=== PATIENT | male | born 1990 | race American Indian/Alaskan Native ===

== ENCOUNTER 2019-01-23 05:20 | Emergency (ER) | payer OTHER ==
[2019-01-23 05:52] VITALS: O2SAT 97
--- NOTE | 2019-01-23 05:59 | ED PDOC ---
Arrival/HPI - General Chief Complaint: Eye Problem Time Seen by Provider: 01/23/19 05:38 Historian: Patient - History of Present Illness Narrative History of Present Illness (Text): 01/23/19 05:59 Stanislav Beasley is a 28 year old male who presents to the ED complaining of vague right eye pain since yesterday. Patient also requesting to speak with general office worker. Patient denies any recent trauma/injury, suicidal ideation, homicidal ideation, fever, chills, chest pain, shortness of breath, nausea, vomiting, diarrhea, urinary symptoms, back pain, neck pain, dizziness, or any other complaints. Time/Duration: Other (tonight) Symptom Onset: Gradual Symptom Course: Unchanged Activities at Onset: Light Past Medical History - Provider Review Nursing Documentation Reviewed: Yes - Infectious Disease Hx of Infectious Diseases: None - Cardiac Hx Cardiac Disorders: Yes Hx Hypertension: Yes - Pulmonary Hx Respiratory Disorders: No - Neurological Hx Neurological Disorder: No - HEENT Hx HEENT Disorder: No - Renal Hx Renal Disorder: No - Endocrine/Metabolic Hx Endocrine Disorders: No - Hematological/Oncological Hx Blood Disorders: No - Integumentary Hx Dermatological Disorder: No - Musculoskeletal/Rheumatological Hx Musculoskeletal Disorders: No - Gastrointestinal Hx Gastrointestinal Disorders: No - Genitourinary/Gynecological Hx Genitourinary Disorders: No - Psychiatric Hx Psychophysiologic Disorder: Yes Hx Bipolar Disorder: Yes Hx Depression: Yes Hx Post Traumatic Stress Disorder: Yes Hx Schizophrenia: Yes Hx Substance Use: Yes - Surgical History Hx Orthopedic Surgery: Yes - Anesthesia Hx Anesthesia: Yes Hx Anesthesia Reactions: No Hx Malignant Hyperthermia: No Family/Social History - Physician Review Nursing Documentation Reviewed: Yes Family/Social History: Unknown Family HX Smoking Status: Heavy Smoker > 10 Cigarettes Daily Hx Alcohol Use: No Hx Substance Use: Yes Substance used: marijuana and PCP Allergies/Home Meds Allergies/Adverse Reactions: Allergies No Known Allergies Allergy (Verified 01/23/19 11:45) Home Medications: Home Meds Medication Instructions Recorded Confirmed No Known Home Med 01/23/19 01/23/19 Review of Systems - Physician Review All systems were reviewed & negative as marked: Yes - Review of Systems Constitutional: Normal. absent: Fevers Eyes: Other (+right eye pain) ENT: Normal Respiratory: Normal. absent: SOB, Cough Cardiovascular: Normal. absent: Chest Pain Gastrointestinal: Normal. absent: Abdominal Pain, Diarrhea, Nausea, Vomiting Genitourinary Male: Normal. absent: Dysuria, Frequency, Hematuria, Urinary Output Changes Musculoskeletal: Normal. absent: Back Pain, Neck Pain Skin: Normal. absent: Rash Neurological: Headache. absent: Dizziness Endocrine: Normal Hemo/Lymphatic: Normal Psychiatric: Normal Physical Exam Vital Signs Reviewed: Yes Vital Signs Pulse Resp BP Pulse Ox 01/23/19 05:49 76 14 135/80 97 Temperature: Afebrile Blood Pressure: Normal Pulse: Regular Respiratory Rate: Normal Appearance: Positive for: Well-Appearing, Non-Toxic, Comfortable Pain Distress: None Mental Status: Positive for: Alert and Oriented X 3 - Systems Exam Head: Present: Atraumatic, Normocephalic Pupils: Present: PERRL, Other (pressure 14 bilateral) Extroacular Muscles: Present: EOMI Conjunctiva: Present: Normal. No: Other (No corneal abrasion or foreign body noted with fluoroscein stain) Mouth: Present: Moist Mucous Membranes Neck: Present: Normal Range of Motion Respiratory/Chest: Present: Clear to Auscultation, Good Air Exchange. No: Respiratory Distress, Accessory Muscle Use Cardiovascular: Present: Regular Rate and Rhythm, Normal S1, S2. No: Murmurs Abdomen: No: Tenderness, Distention, Peritoneal Signs Back: Present: Normal Inspection Upper Extremity: Present: Normal Inspection. No: Cyanosis, Edema Lower Extremity: Present: Normal Inspection. No: Edema Neurological: Present: GCS=15, CN II-XII Intact, Speech Normal Skin: Present: Warm, Dry, Normal Color. No: Rashes Psychiatric: Present: Alert, Oriented x 3, Normal Insight, Normal Concentration Medical Decision Making ED Course and Treatment: 01/23/19 05:59 Impression: 28 year old male complaining of vague right eye pain and requesting to speak with PES. Plan: -- CT Head w/o contrast -- EKG -- Chest X-ray -- Labs, alcohol level -- Urinalysis, urine drug screen -- Reglan -- Reassess and disposition Progress Notes: - Transfer of Care Patient signed out to :Binh NIELSEN - Scribe Statement The provider has reviewed the documentation as recorded by the Scribe Impression: Differential Diagnosis included but are not limited to: Plan: -- Reassess and disposition Prior Visits: Notes and results from previous visits were reviewed. Progress Notes: Disposition/Present on Arrival - Present on Arrival Any Indicators Present on Arrival: No History of DVT/PE: No History of Uncontrolled Diabetes: No Urinary Catheter: No History of Decub. Ulcer: No History Surgical Site Infection Following: None - Disposition Have Diagnosis and Disposition been Completed?: Yes Diagnosis: Eye problem Disposition: HOME/ ROUTINE Disposition Time: 07:00 Condition: GOOD Discharge Instructions (ExitCare): How to Care for Your Eyes Forms: [employer] ([place])
[2019-01-23 06:30] LABS: BASO # 0.05 K/mm3 (0.0-2.0); BASO % 0.4 % (0.0-3.0); EOS # 0.2 (0.0-0.7); EOS % 1.9 % (1.5-5.0); HEMOGLOBIN 13.8 g/dL (14.0-18.0); LYMPH % 25.9 % (22.0-35.0); MEAN CELL VOLUME 83.8 fl (80.0-105.0); MEAN CORPUSCULAR HGB CONC 33.4 g/dl (31.0-37.0); MEAN PLATELET VOLUME 9.8 fl (7.0-11.0); MONO # 1.1 (0.1-0.6); MONO % 9.7 % (1.0-6.0); RBC 4.93 10^6/uL (3.5-6.1); RED CELL DISTRIBUTION WIDTH 14.2 % (11.5-14.5); WHITE BLOOD COUNT 11.4 10^3/uL (4.5-11.0)
[2019-01-23 06:33] LABS: URINE BILIRUBIN NEGATIVE (NEGATIVE); URINE BLOOD NEGATIVE (NEGATIVE); URINE GLUCOSE (UA) NEGATIVE (NEGATIVE); URINE LEUKOCYTE ESTERASE NEGATIVE Leu/uL (NEGATIVE); URINE PROTEIN NEGATIVE mg/dL (<30 mg/dL); URINE UROBILINOGEN 0.2 E.U./dL (<1 E.U./dL)
[2019-01-23 06:35] LABS: ACETAMINOPHEN < 10.0 ug/ml (10.0-20.0); SALICYLATE < 1 mg/dL (2.0-20.0)
[2019-01-23 06:36] LABS: URINE APPEARANCE CLEAR (CLEAR); URINE COLOR YELLOW (YELLOW)
[2019-01-23 06:37] LABS: ALB/GLOB RATIO 1.5 (1.1-1.8); ALBUMIN 4.1 g/dL (3.0-4.8); ALT/SGPT 32 U/L (7-56); AST/SGOT 28 U/L (17-59); BLOOD UREA NITROGEN 21 mg/dL (7-21); CALCIUM 9.2 mg/dL (8.4-10.5); GFR NON-AFRICAN AMERICAN > 60
[2019-01-23 07:00] LABS: BARBITURATES, UR NEGATIVE (NEGATIVE); BENZODIAZEPINES, UR NEGATIVE (NEGATIVE); OPIATES, UR NEGATIVE (NEGATIVE); PHENCYCLIDINE, UR POSITIVE (NEGATIVE)
[2019-01-23 07:38] VITALS: BP 128/80; PULSE 67; RESP 18
--- NOTE | 2019-01-23 07:59 | ED PDOC ---
Physical Exam Vital Signs Pulse Resp BP Pulse Ox 01/23/19 07:38 67 18 128/80 97 01/23/19 05:49 76 14 135/80 97 Medical Decision Making ED Course and Treatment: Signed out to me at change of shift pending PES evaluation. Patient without any SI/HI/hallucinations, only asking to speak with Psych. Psych evaluated, cleared for discharge. - Lab Interpretations Lab Results: Total Bilirubin 0.6 mg/dL (0.2-1.3) 01/23/19 06:13 AST 28 U/L (17-59) 01/23/19 06:13 ALT 32 U/L (7-56) 01/23/19 06:13 Alkaline Phosphatase 95 U/L (38-126) 01/23/19 06:13 Total Protein 6.8 g/dL (5.8-8.3) 01/23/19 06:13 Albumin 4.1 g/dL (3.0-4.8) 01/23/19 06:13 Globulin 2.7 gm/dL 01/23/19 06:13 Albumin/Globulin Ratio 1.5 (1.1-1.8) 01/23/19 06:13 Urine Color Yellow (YELLOW) 01/23/19 06:10 Urine Appearance Clear (CLEAR) 01/23/19 06:10 Urine pH 6.0 (4.7-8.0) 01/23/19 06:10 Ur Specific Lambert 1.020 (1.005-1.035) 01/23/19 06:10 Urine Protein Negative mg/dL (<30 mg/dL) 01/23/19 06:10 Urine Glucose (UA) Negative mg/dL (NEGATIVE) 01/23/19 06:10 Urine Ketones 15 mg/dL (NEGATIVE) H 01/23/19 06:10 Urine Blood Negative (NEGATIVE) 01/23/19 06:10 Urine Nitrate Negative (NEGATIVE) 01/23/19 06:10 Urine Bilirubin Negative (NEGATIVE) 01/23/19 06:10 Urine Urobilinogen 0.2 E.U./dL (<1 E.U./dL) 01/23/19 06:10 Ur Leukocyte Esterase Negative Earline/uL (NEGATIVE) 01/23/19 06:10 - RAD Interpretation Radiology Orders: 01/23/19 06:04 HEAD W/O CONTRAST [CT] Stat 01/23/19 06:05 CHEST ONE VIEW [RAD] Stat - Medication Orders Current Medication Orders: Discontinued Medications Metoclopramide HCl (Reglan) 10 mg IVP ONCE ONE Stop: 01/23/19 06:06 Last Admin: 01/23/19 06:19 Dose: 10 mg IVP Administration Document 01/23/19 06:19 IT (Rec: 01/23/19 06:19 [place] [id number] Charges for Administration # of IVP Administrations 1 Disposition/Present on Arrival - Present on Arrival Any Indicators Present on Arrival: No History of DVT/PE: No History of Uncontrolled Diabetes: No Urinary Catheter: No History of Decub. Ulcer: No History Surgical Site Infection Following: None - Disposition Have Diagnosis and Disposition been Completed?: Yes Diagnosis: Eye problem Disposition: HOME/ ROUTINE Disposition Time: 07:30 Patient Plan: Discharge Patient Problems: Current Active Problems Problem Status Onset Eye problem Acute Condition: GOOD Discharge Instructions (ExitCare): How to Care for Your Eyes Forms: [employer] (Upper Sorbian)
--- NOTE | 2019-01-23 11:03 | CT ---
Date of service: 01/23/2019 PROCEDURE: CT HEAD WITHOUT CONTRAST. HISTORY: headache COMPARISON: None available. TECHNIQUE: Axial computed tomography images were obtained through the head/brain without intravenous contrast. Radiation dose: Total exam DLP = 879.54 mGy-cm. This CT exam was performed using one or more of the following dose reduction techniques: Automated exposure control, adjustment of the mA and/or kV according to patient size, and/or use of iterative reconstruction technique. FINDINGS: HEMORRHAGE: No intracranial hemorrhage. BRAIN: Low density area in the inferior right frontal lobe. No atrophy or chronic microvascular ischemic changes. VENTRICLES: Unremarkable. No hydrocephalus. CALVARIUM: Left parietal craniectomy. PARANASAL SINUSES: Unremarkable as visualized. No significant inflammatory changes. MASTOID AIR CELLS: Unremarkable as visualized. No inflammatory changes. OTHER FINDINGS: None. IMPRESSION: Low-density area in the inferolateral right frontal lobe may be related to subacute infarct. MRI can be obtained for further characterization as clinically warranted.
--- NOTE | 2019-01-23 11:08 | RAD ---
Date of service: 01/23/2019 PROCEDURE: CHEST RADIOGRAPH, 1 VIEW HISTORY: pes COMPARISON: None available. FINDINGS: LUNGS: Clear. PLEURA: No pneumothorax or pleural fluid seen. CARDIOVASCULAR: No aortic atherosclerotic calcification present. Normal. OSSEOUS STRUCTURES: No significant abnormalities. VISUALIZED UPPER ABDOMEN: Normal. OTHER FINDINGS: None. IMPRESSION: No active disease.
--- NOTE | 2019-01-24 11:14 | CARD ---
APPROVED REPORT Date of service: 01/23/2019 EKG Measurement Heart [id number] ID [id number] <Conclusion> Normal sinus rhythm Normal ECG
== END 2019-01-23 07:44 | disposition home or self-care (01) ==
LOC: ED 05:20 → MERGE 05:20 → ED 07:44
DX: H57.89 Other specified disorders of eye and adnexa (principal); I10 Essential (primary) hypertension; F31.9 Bipolar disorder, unspecified; F43.10 Post-traumatic stress disorder, unspecified; F20.9 Schizophrenia, unspecified; F17.210 Nicotine dependence, cigarettes, uncomplicated
CPT/HCPCS: 70450; 71045; 80053; 80320; 80324; 80329; 80345; 80346; 80349; 80353; 80358; 80361; 81003; 83735; 83992; 85025; 90791; 93005; 96374; 99284; J2765

== ENCOUNTER 2019-01-23 11:41 | Emergency (ER) | payer OTHER ==
--- NOTE | 2019-01-23 11:59 | ED PDOC ---
Arrival/HPI - General Chief Complaint: Medical Clearance Time Seen by Provider: 01/23/19 11:45 Historian: Patient, EMS - History of Present Illness Narrative History of Present Illness (Text): 28 y/o male with no significant PMH presents to the ED by ambulance for medical clearance. Pt states he was in an verbal altercation with his girlfriend this morning and the police were called. Upon arrival the police gave the patient the option of being taken into custody or being taken to the ED. Pt is not under arrest. Pt has no physical complaints. Of note, pt was cleared by psychiatric team and discharged this morning from [facility]. Denies drug or alcohol use, SI, HI, fever, abdominal pain, nausea, vomiting, chest pain, SOB, back pain, dizziness, headache, or any other associated symptoms. Past Medical History - Provider Review Nursing Documentation Reviewed: Yes - Infectious Disease Hx of Infectious Diseases: None - Cardiac Hx Cardiac Disorders: No Hx Hypertension: No - Pulmonary Hx Tuberculosis: No - Neurological HX Cerebrovascular Accident: No Hx Seizures: No - HEENT Hx HEENT Disorder: No - Renal Hx Renal Disorder: No - Endocrine/Metabolic Hx Endocrine Disorders: No - Hematological/Oncological Hx Cancer: No - Integumentary Hx Dermatological Disorder: No - Musculoskeletal/Rheumatological Hx Musculoskeletal Disorders: No - Gastrointestinal Hx Gastrointestinal Disorders: No - Genitourinary/Gynecological Hx Sexually Transmitted Diseases: No - Psychiatric Hx Psychophysiologic Disorder: Yes Hx Bipolar Disorder: Yes Hx Depression: Yes Hx Post Traumatic Stress Disorder: Yes Hx Schizophrenia: Yes Hx Substance Use: Yes - Surgical History Hx Orthopedic Surgery: Yes - Anesthesia Hx Anesthesia: Yes Hx Anesthesia Reactions: No Hx Malignant Hyperthermia: No Family/Social History - Physician Review Nursing Documentation Reviewed: Yes Family/Social History: No Known Family HX Smoking Status: Heavy Smoker > 10 Cigarettes Daily Hx Alcohol Use: No Hx Substance Use: Yes Substance used: marijuana and PCP Allergies/Home Meds Allergies/Adverse Reactions: Allergies No Known Allergies Allergy (Verified 01/24/19 10:01) Home Medications: Home Meds Medication Instructions Recorded Confirmed Haloperidol [Haldol] 5 mg PO BID 01/12/19 01/12/19 No Known Home Med 01/23/19 01/23/19 Review of Systems - Review of Systems Constitutional: Normal. absent: Fevers Eyes: Normal. absent: Vision Changes ENT: Normal. absent: Sore Throat, Sinus Congestion Respiratory: Normal. absent: SOB, Cough Cardiovascular: Normal. absent: Chest Pain, Palpitations Gastrointestinal: Normal. absent: Abdominal Pain, Nausea, Vomiting Genitourinary Male: Normal. absent: Dysuria Musculoskeletal: Normal. absent: Back Pain, Neck Pain Skin: Normal. absent: Rash, Laceration Neurological: Normal. absent: Headache, Dizziness Psychiatric: Normal. absent: Anxiety, Depression, Suicidal Ideation Physical Exam Vital Signs Reviewed: Yes Temperature: Afebrile Blood Pressure: Normal Pulse: Regular Respiratory Rate: Normal Appearance: Positive for: Well-Appearing, Non-Toxic, Comfortable Pain Distress: None Mental Status: Positive for: Alert and Oriented X 3 - Systems Exam Head: Present: Atraumatic, Normocephalic Pupils: Present: PERRL Extroacular Muscles: Present: EOMI Conjunctiva: Present: Normal Mouth: Present: Moist Mucous Membranes Neck: Present: Normal Range of Motion Respiratory/Chest: Present: Clear to Auscultation, Good Air Exchange. No: Respiratory Distress, Accessory Muscle Use Cardiovascular: Present: Regular Rate and Rhythm, Normal S1, S2 Abdomen: No: Tenderness Upper Extremity: Present: Normal Inspection, Normal ROM Lower Extremity: Present: Normal Inspection, Normal ROM Neurological: Present: GCS=15, Speech Normal, Motor Func Grossly Intact, Gait Normal Skin: Present: Warm, Dry, Normal Color. No: Rashes Psychiatric: Present: Alert, Oriented x 3, Normal Insight, Normal Concentration, Normal Affect, Normal Mood Medical Decision Making ED Course and Treatment: Initial Plan: * Reassess and Disposition Patient awake, alert, oriented x 3. Denies SI, HI, hallucinations, anxiety, or depression. Denies drug or alcohol use. Able to make informed decisions. Clinically sober. Ambulating with steady gait. Pt medically cleared overnight and evaluated by PES who discharged him home. Pt has no physical complaints, will discharge home. Diagnostic testing results and plan of care discussed with patient. Strict instructions given regarding importance of followup, and signs/symptoms to return to ER. Pt verbalized understanding of discussion. Patient is A&Ox3, ambulating with steady gait, with vital signs stable for discharge. Disposition/Present on Arrival - Present on Arrival Any Indicators Present on Arrival: No History of DVT/PE: No History of Uncontrolled Diabetes: No Urinary Catheter: No History of Decub. Ulcer: No History Surgical Site Infection Following: None - Disposition Have Diagnosis and Disposition been Completed?: Yes Diagnosis: Encounter for general adult medical examination with abnormal findings Disposition: HOME/ ROUTINE Disposition Time: 11:59 Condition: STABLE Additional Instructions: Followup with your primary doctor Return to ER with any new/worsening symptoms Referrals: Rea Bianchi MD [Medical Doctor] - Follow up with primary [facility] [Outside] - Follow up with primary [facility] at [facility] [Outside] - Follow up with primary Forms: [email or web address] ([place]ovan), WORK NOTE
[2019-01-23 12:10] VITALS: BP 124/84; PULSE 75; RESP 18; TEMP 98.4; O2SAT 98
== END 2019-01-23 12:22 | disposition home or self-care (01) ==
LOC: ED 11:41 → MERGE 11:41 → ED 12:22
DX: Z00.01 Encounter for general adult medical examination with abnormal findings (principal); F20.9 Schizophrenia, unspecified